=== PATIENT | male | born 1995 | race Caucasian/White ===

== ENCOUNTER 2016-12-20 11:20 | Emergency (ER) | payer OTHER ==
[2016-12-20] MEDS ORDERED: NO MEDICATIONS (11:33)
== END 2016-12-20 13:44 | disposition home or self-care (01) ==
LOC: SED 11:20
DX: S60.454A Superficial foreign body of right ring finger, initial encounter (principal); W49.04XA Ring or other jewelry causing external constriction, initial encounter
CPT/HCPCS: 99283